=== PATIENT | female | born 1930 | race Caucasian/White ===

== ENCOUNTER 2019-09-25 01:00 | Inpatient (IN) | payer OTHER ==
[~2019-09-25] VITALS: Ht 152.4 cm; Wt 59.0 kg
[~2019-09-25 01:00] MED LIST: ADULT LOW DOSE81 MG PO; ALDACTONE100 MG PO; AMITRIPTYLINE H10 M1 PO; ASPIR 8181 MG PO; BENICAR40 MG PO; BENTYL 10 MG CA10 M1 PO; BIOTIN2500 MCG PO; BYSTOLIC 5 MG5 M1 PO; FLONASE 0.05%50 MCG NASAL; HYDROCODON-ACE1 EAC5 PO; LASIX 20 MG TAB20 MG PO; LASIX 40 MG TAB40 M1 PO; MIRALAX17 GM PO; MIRALAX255 GM PO; MULTIVITAMINS PO; NORCO 10-325 T1 EACH PO; PANTOPRAZOLE SO40 M1 PO; POTASSIUM20 PO; PROTONIX40 M2 PO; TIZANIDINE HCL4 M1 PO; TIZANIDINE HCL4 MG PO; WELLBUTRIN 100100 MG PO
[2019-09-25 01:02] VITALS: BP 168/87
[2019-09-25 04:30] VITALS: BP 151/66
[2019-09-25 05:00] VITALS: BP 163/74
--- NOTE | 2019-09-25 07:25 | NUR ---
PATIENT ARRIVED ON FLOOR FROM ER AT ABOUT 0445. PATIENT ADMISSION HISTORY AND ASSESSMENT WAS COMPLETED CHARTED. PATIENT WAS GIVEN PAIN PILL AND ICE PACK WAS PLACED TO LEFT SHOULDER. WILL CONTINUE TO MONITOR.
[2019-09-25 08:20] VITALS: BP 142/69
[2019-09-25 12:45] LABS: HEMATOCRIT 27.3 % (37.0-47.0); HEMOGLOBIN 9.2 gm/dL (12.0-15.0); MCH 30.6 pg (26.0-34.0); MCHC 33.9 g/dL (28.0-37.0); MCV 90.4 fL (80.0-100.0); MPV 8.5 fl. (7.2-11.1); RBC 3.01 mil/uL (4.20-5.00); RDW-CV 16.1 % (10.5-14.5); WBC 13.4 thou/uL (4.0-11.0)
[2019-09-25 13:02] LABS: CALCIUM 8.5 mg/dL (8.5-10.1); CREATININE 2.2 mg/dL (0.6-1.3); POTASSIUM 4.1 mmol/L (3.5-5.1)
--- NOTE | 2019-09-25 14:57 | NUR ---
SW met with pt to complete initial assessment, introduce self, and SW role. Pt dtr and pt son provided information as well. Pt son Ronnie Schneider phone number is [phone]. Pt alert, oriented, pleasant. Pt lives at home alone. Pt has history of falls and chronic shoulder pain. Pt expressed concern for dc home alone and stated that she wants to be able to dc to [facility]. Pt has a history of SNF at [place] but pt preference at this dc is [facility]. SW to fax referral and SW to continue to follow to assist with safe dc planning.
[2019-09-25 15:15] VITALS: BP 155/65
--- NOTE | 2019-09-25 19:35 | NUR ---
PATIENT AWAKE IN BED. PATIENT IN CHAIR FOR MEALS. PATIENT AMBULATING WITH ASSISTANCE, WALKER, AND GAIT BELT. ALL SAFETY MEASURES MAINTAINED. PATIENT DENIES FURTHER NEEDS AT THIS TIME.
[2019-09-25 21:00] VITALS: BP 145/66
[2019-09-26 04:14] LABS: HEMATOCRIT 28.7 % (37.0-47.0); HEMOGLOBIN 9.4 gm/dL (12.0-15.0); MCH 29.8 pg (26.0-34.0); MCHC 32.7 g/dL (28.0-37.0); MCV 91.1 fL (80.0-100.0); MPV 8.3 fl. (7.2-11.1); RBC 3.16 mil/uL (4.20-5.00); RDW-CV 16.1 % (10.5-14.5); WBC 17.4 thou/uL (4.0-11.0)
[2019-09-26 04:42] LABS: ALBUMIN 2.6 g/dL (3.4-5.0); CALCIUM 8.5 mg/dL (8.5-10.1); CREATININE 1.8 mg/dL (0.6-1.3); MAGNESIUM 2.3 mg/dL (1.8-2.4); POTASSIUM 4.3 mmol/L (3.5-5.1); TOTAL BILIRUBIN 0.4 mg/dL (<0.1-1.0); TOTAL PROTEIN 5.2 g/dL (6.4-8.2)
--- NOTE | 2019-09-26 06:10 | NUR ---
PATIENT SLEPT MOST OF THE NIGHT. IV FLUIDS CONTINUE TO INFUSE AT 100 ML/HR. PATIENT WAS GIVEN PAIN MEDICINE TWICE FOR PAIN. WILL CONTINUE TO MONITOR.
[2019-09-26 08:05] VITALS: BP 150/61
--- NOTE | 2019-09-26 14:14 | NUR ---
RECOMMEND L UE SHOULDER IMMOBILIZER DUE TO PT. IS NOT COMPLIANT WITH NOT MOVING SHOULDER AND USES L UE FOR BACK PERICARE AND CLOTHING MANAGEMENT DESPITE O.T.'S CUES.
--- NOTE | 2019-09-26 15:41 | NUR ---
ESCOBAR followed up with pt and pt family regarding pending dc to [facility] due to acceptance and insurance auth not received yet. ESCOBAR spoke with Malissa in admissions at [facility] who stated that referral is under review and that Margareth planned to visit with pt/family today. SW provided family with resources/referral and support. SW to continue to follow to assist with safe dc planning/placement.
[2019-09-26 16:00] VITALS: BP 154/60
--- NOTE | 2019-09-26 17:36 | NUR ---
PT AWAKE/ALERT VSS. PT WORKED WITH PT THIS AM. PT HAS SLING TO L ARM FOR COMFORT. PT IV TO LFA REMAINS PATENT. IVF DC'D B Y PROVIDER THIS SHIFT. PT UP SBA, GAIT SLOW BUT STEADY. UA COLLECTED AND SENT TO LAB ORDERED. PT REMAINS CONTINENT OF B/B. DISCUSSION OF DC TO FACILITY TOMORROW. PT IN ROOM WITH CALL LIGHT IN REACH. NO C/O PAIN AT THIS TIME. WILL CONTINUE TO MONITOR.
[2019-09-26 20:00] VITALS: BP 147/70
[2019-09-27 02:35] LABS: URINE BILIRUBIN NEGATIVE (Negative); URINE BLOOD NEGATIVE (Negative); URINE CLARITY CLEAR; URINE COLOR YELLOW; URINE GLUCOSE-RANDOM NEGATIVE (Negative); URINE KETONES NEGATIVE (Negative); URINE LEUKOCYTES-REFLEX NEGATIVE (Negative); URINE NITRITE-REFLEX NEGATIVE (Negative); URINE PROTEIN NEGATIVE (Negative); URINE SPECIFIC GRAVITY <= 1.005 (1.005-1.030); URINE UROBILINOGEN 0.2 E.U./dl (0.2-1.0)
[2019-09-27 05:50] LABS: CREATININE 1.3 mg/dL (0.6-1.3); MAGNESIUM 2.4 mg/dL (1.8-2.4); POTASSIUM 4.3 mmol/L (3.5-5.1)
--- NOTE | 2019-09-27 06:43 | NUR ---
ASSUMED CARE OF PT AFTER REPORT AT 1930. PT A&OX4. VSS. PHYSICAL ASSESSMENT COMPLETED AND CHARTED. PT ON RA. PT UP WITH 1 ASSIST TO BSC. PT COMPLAINED OF LEFT SHOULDER PAIN-MEDS GIVEN EPR DEC. PT ABLE TO SLEEP WELL ON BED. CALL LIGHT WITHIN REACH.
--- NOTE | 2019-09-27 06:49 | NUR ---
ASSUMED CARE OF PT AFTER REPORT AT 1930. PT A&OX3. NOT ORIENTED TO TIME. VSS. PHYSICAL ASSESSMENT COMPLETED AND CHARTED. PT ON RA. PT UP WITH 1 ASSIST TO BSC. PT COMPLAINED OF LEFT SHOULDER PAIN-MEDS GIVEN EPR DEC. PT ABLE TO SLEEP WELL ON BED. CALL LIGHT WITHIN REACH.
[2019-09-27 08:00] VITALS: BP 166/64
[2019-09-27] MEDS ORDERED: VOLTAREN GEL 1100 G2 TOP (10:56)
[2019-09-27] MEDS ORDERED: TIZANIDINE HCL2 M1 PO (10:56)
[2019-09-27] MEDS ORDERED: LIDOPATCH1 EACH TOP (10:56)
[2019-09-27] MEDS ORDERED: PAIN RELIEVER500 MG PO (10:56)
[2019-09-27] MEDS ORDERED: TRAMADOL 50 MG50 MG PO (10:56)
[2019-09-27] MEDS ORDERED: OXYCODONE HCL 55 MG PO (10:56)
[2019-09-27] MEDS ORDERED: BENGAY113 GM TOP (10:56)
--- NOTE | 2019-09-27 11:45 | CON ---
[address] [address] CONSULTATION Name: JR MARISCAL Room: [address] ADM IN M.R.#: [id number] Admission: 09/25/19 Attend Phys: Kayla Martinez MD Discharge: Date of : [birth year] Report #: [id number] THIS REPORT FOR: //name// CC: Akhil Martinez DATE OF SERVICE: 09/25/2019 NEPHROLOGY CONSULTATION LOCATION: [facility], in room 316. I am asked to see this 88-year-old female at the request of Dr. Hall for acute kidney injury. CHIEF COMPLAINT: Intractable shoulder pain. HISTORY OF PRESENT ILLNESS: The patient had been at [facility] for unclear reasons and then was discharged to a correction unit for 2 weeks. She completed that stay, returned home and then fell and injured her shoulder. She was diagnosed with a displaced left shoulder and conservative care was recommended. She became more forgetful at home, seemed to be dwindling and was brought by the family to the ED and admitted. PAST MEDICAL HISTORY: Positive for chronic kidney disease with a baseline creatinine of 1.17 and an EGFR of stage 3 values. She also has a history of chronic tremor, followed by Dr. Karey valenzuela. She has degenerative joint disease, secondary hyperparathyroidism, coronary artery disease, acquired renal cystic disease, hematuria for which she follows with Urology, edema of her lower extremities for which she is on diuretics in the form of furosemide, and benign hypertensive kidney disease and hypertension. She has had an acute shoulder subluxation. She has chronic pain. FAMILY HISTORY: Positive for no renal diseases in family members, but abundant coronary artery disease, hypertension and diabetes in her daughter. SOCIAL HISTORY: Very supportive family network. She is . Never a tobacco user. Occasional alcohol use. ALLERGIES: AMOXICILLIN, CODEINE, PENICILLIN AND MORPHINE. MEDICATIONS: She is on chronic medications, which include spironolactone 100 mg daily, potassium chloride 20 mEq daily, olmesartan 40 mg daily, dicyclomine 10 mg every 6 hours p.r.n., furosemide 40 mg daily, bupropion 100 mg daily, fluticasone p.r.n. congestion, biotin 5000 mcg daily, nebivolol 5 mg daily, aspirin 81 mg daily, Flonase 2 sprays nasally q.a.m., aspirin 81 mg at bedtime, [place] [address] CONSULTATION Name: MARISCALJR Room: [address]#: [id number] Admission: 09/25/19 Attend Phys: Kayla Martinez MD Discharge: Date of : [birth year] Report #: [id number] [place] 10/325 mg 4 times a day p.r.n., pantoprazole 40 mg b.i.d., polyethylene glycol 17 grams daily, tizanidine 4 mg p.r.n. muscle spasm, multivitamins one daily. REVIEW OF SYSTEMS: HEENT: No recent changes in vision or hearing. CARDIAC: No chest pain. PULMONARY: Not short of air. GASTROINTESTINAL: No present abdominal pain. Positive constipation. GENITOURINARY: Chronic kidney disease with recent acute renal failure. MUSCULOSKELETAL: Shoulder pain, generalized pain. PSYCHIATRIC: Anxiety and depression. NEUROLOGIC: No TIA, CVA, Parkinson's disease. No seizures. Other 14-point review of systems as above. PHYSICAL EXAMINATION: GENERAL: She is awake. She is confused. She asked me if she is going to . VITAL SIGNS: Show a temperature of 36.7, heart rate 60s, respirations 16, blood pressure 154/60, O2 saturation 96% on room air. HEENT: Atraumatic, normocephalic. NECK: Supple. CHEST: Seems clear bilateral, symmetrical breath sounds. CARDIAC: Regular rhythm. No rubs. ABDOMEN: Soft and nontender. Positive bowel sounds. EXTREMITIES: No edema. She has deformities of her feet bilaterally, calluses. She has good and equal perfusion. PSYCHIATRIC: Cooperative, but anxious. NEUROLOGIC: No new pathologic signs. Motor is intact. Sensory is intact. Cranial nerves seem at baseline. LABORATORY DATA: Shows her creatinine was 2.2 yesterday, 1.8 today. Baseline recently seems to be 1.17 within the past several months. Her potassium is 4.3, CO2 of 29, calcium 8.5, magnesium 2.3. Liver function studies not increased. Albumin 2.6. Folic acid is lower end of normal. TSH 0.14. Hemoglobin is 9.4, hematocrit 28.7, white count 17,400, platelets 263,000. Microbiology has not been obtained. IMAGING STUDIES: Including a head MRI and chest x-ray showed that she has no hemorrhage or mass effect. Normal vascular flow voids are identified on the MRI. Chronic changes are as noted, without acute intracranial abnormalities. Chest x-ray shows slight blunting of the left costophrenic angle suggesting small left pleural effusion, no pneumothorax, left shoulder dislocation that may be chronic. Lungs are otherwise clear. [address] [address] CONSULTATION Name: JR MARISCAL Room: [address] IN [place]#: [id number] Admission: 09/25/19 Attend Phys: Kayla Martinez MD Discharge: Date of : [birth year] Report #: [id number] Her shoulder x-ray showed anterior subcoracoid dislocation of the humerus and a slight irregularity of the shoulder with fracture difficult to exclude, cardiomegaly with aortic prominence and possible tortuosity. IMPRESSION: 1. Acute kidney injury, improving. I do not know her output as it is not charted. She has had a decrease in her creatinine from 2.2 to 1.8. Baseline again recently was 1.7 according to records that I have reviewed from our office from 03/2019. 2. Chronic kidney disease, stage 3. 3. Acute mental status changes, may easily be related to recent medications including pain medications, analgesics, narcotics, tizanidine and others. 4. Anemia of chronic kidney disease. 5. Anterior subcoracoid dislocation of the humerus. 6. Leukocytosis. 7. Acute and chronic pain. 8. Hypertension. 9. Gastroesophageal reflux disease. 10. Diverticulosis. 11. Coronary artery disease. PLAN: 1. We will need to be certain that she is emptying her bladder. We would check postvoid residuals. 2. Follow labs. 3. Avoid sensorium altering drugs as possible. 4. Much workup has been done in other facilities. We will not repeat that at present, especially with her creatinine improving. We will follow with you. <ELECTRONICALLY SIGNED> By: Ana Rice MD 09/27/19 1145 [id number] Rice MD /norma
--- NOTE | 2019-09-27 13:36 | CON ---
[address] [address] CONSULTATION Name: MARISCALJR J Room: [address] IN M.R.#: [id number] Admission: 09/25/19 Attend Phys: Kayla Martinez MD Discharge: Date of : [birth year] Report #: [id number] THIS REPORT FOR: //name// CC: Akhil Martinez HISTORY OF PRESENT ILLNESS: This is an 88-year-old female patient who was seen by me for the possibility of dementia. This patient has a decline in her mental status recently. I do not have any family member to confirm that, but I reviewed the patient's records and it would appear this patient has intractable left shoulder pain, which beneath the shoulder is displaced. Her creatinine has significantly elevated. It is worse than the baseline, although it is becoming better. She has received some pain medication, which I suspect will have delayed clearance because of the renal dysfunction. She never had this kind of episode before and in fact she feels she is better. REVIEW OF SYSTEMS: Positive for intractable shoulder pain because of shoulder dislocation. She has a history of colitis. She also has pain in both feet and that is being addressed by Podiatry. She takes multiple medications. She also has a history of high blood pressure, arthritis, baseline elevation of creatinine, esophagus and stomach problems, reflux, diverticulosis, necrosis of ankles and knee replacement, cataract surgery, palpitations, back pain, cholecystectomies, cyst on the right knee and a question of seizure, which I am not certain about it. She also had a history of hyperglycemia. This was a relevant 14-point review of systems. She does not complain of any new eye, ENT, cardiac, psychiatric, throat, allergic symptom associated with present symptomatology. PAST MEDICAL HISTORY: Positive for pain even in the past. FAMILY HISTORY: Negative for any early age stroke. SOCIAL HISTORY: She denies any abuse of alcohol. PHYSICAL EXAMINATION: GENERAL: Examination indicate that she is alert. She is responsive. She can follow simple command. In fact, she is oriented and her speech, concentration and fund of knowledge is at her baseline. NEUROLOGIC: Cranial nerve examination 2-12 does not appear to be showing any definite abnormality. Neuromuscular examination is limited because she has a problem with the left shoulder, but looks like allowing for that it is symmetrical. Her position sense appeared to be intact. Reflexes and tone looks symmetrical. There is no cerebellar sign. I could not look at the patient's fundus. There is no meningeal sign. The patient is reasonably well-built individual. She does not have any problem with hearing. She does indicate that she sees double. That is nothing new. It is going on for at least 1 year. She does not know when she does that, but on examination, [place] [address] CONSULTATION Name: MARISCALJR Room: [address] IN [facility]#: [id number] Admission: 09/25/19 Attend Phys: Kayla Martinez MD Discharge: Date of : [birth year] Report #: [id number] be any restriction of her extraocular movements. CARDIAC: Examination does not appear to be showing any abnormality. LUNGS: No respiratory difficulty or rhonchi. VITAL SIGNS: Pulses are palpable. Her blood pressure is 145/66, respiration is 17, pulse is 68, temperature is 98.1. LABORATORY DATA: Her white count is high for some reason. IMPRESSION: I suspect the patient's symptom is because of encephalopathy caused by renal dysfunction as well as a delayed clearing of the medications, which the renal dysfunction will cause. I am not certain about her history of seizures. I did order an EEG to check for it. I will give her thiamine and because of renal dysfunction and we just need to see if she improves or not. She will need some workup for her diplopia as an outpatient and she probably will be checked for myasthenia gravis, but for that she should make an appointment as an outpatient. Similarly further workup for dementia needs to be done, that also needs to be done as an outpatient. I discussed that with the patient and if the patient wants to proceed with that, she can make an appointment with us as an outpatient. Thank you very much for this referral. <ELECTRONICALLY SIGNED> By: Don Adams MD 09/27/19 1336 [id number] Adams MD /nt
--- NOTE | 2019-09-27 15:24 | NUR ---
ESCOBAR followed up with Malissa in admissions at [facility] to check on status of referral for SNF. Malissa said that [facility] has not provided auth yet so final acceptance pending insurance auth. Malissa discussed SNF and possible [facility] options in the future with family as well but waiting to hear back from insurance.
[2019-09-27 16:00] VITALS: BP 174/87
[2019-09-27 23:57] VITALS: BP 147/76
--- NOTE | 2019-09-28 04:56 | NUR ---
PATIENT AWAKE MOST OF THE NIGHT. PT REQUESTED PAIN MEDICATION X2. ULTRAM 50MG PO AND OXY 5MG PO GIVEN. PT RETURNED TO SLEEP AFTERWARDS. PT UP IN CHAIR SEVERAL TIMES TO SIT. PT WITH SALINE LOCK; PATENT. PT UP TO BATHROOM WITH STANDBY AND USE OF WALKER. FREQUENTLY USED ITEMS AND CALL LIGHT WITHIN REACH. SIDERAILS UPX3 AND BED ALARM ON. WILL CONTINUE TO MONITOR.
[2019-09-28 08:30] VITALS: BP 165/75
[2019-09-28 17:30] VITALS: BP 167/65
--- NOTE | 2019-09-28 18:14 | NUR ---
PATIENT AWAKE IN BED. ALL SAFETY MEASURES MAINTAINED. PATIENT AMBULATED WITH ASSISTANCE, GAIT BELT, AND CANE TO BEDSIDE COMMODE AND CHAIR THROUGHOUT SHIFT. PATIENT DENIES FURTHER NEEDS AT THIS TIME.
[2019-09-29] VITALS: BP 168/64
--- NOTE | 2019-09-29 01:46 | NUR ---
PATIENT TO BATHROOM WITH ASSIST OF ONE PLUS CANE. PT VOIDED YELLOW URINE. PT UNABLE TO GET OFF TOILET. NURSE RODERICK CALLED FOR ASSISTANCE. GAIT BELT PLACED ON PATIENT AND PT WAS INSTRUCTED TO PUT FEET UNDER HERSELF AND ON COUNT OF THREE THE THREE OF US WE WOULD GET HER UP OFF THE TOILET. PT UPSET AND SAID SHE WOULD NOT GET UP. AT NO TIME WAS PT'S LT ARM USED TO GET HER UP. TECH AND I ASSISTED HER TO STANDING POSITION WITH USE OF G.BELT AND ASSISTED HER BACK TO BED. PT ANGRY SHE WAS MADE TO USE BATHROOM INSTEAD OF COMMODE. PT POSITIONED IN BED, PT AGREED TO TRY PILLOW UNDER LT ARM THEN REFUSED. ICE PACK PROVIDED. TYLENOL EX X2 GIVEN AT 0130 SCHEDULED. PT ASKED ME TO LEAVE THE ROOM AT THIS TIME. CALL LIGHT WITHIN REACH. WILL CONTINUE TO MONITOR.
[2019-09-29 08:00] VITALS: BP 154/71
[2019-09-29] MEDS ORDERED: OXYCODONE HCL 55 MG PO (08:39)
[2019-09-29 16:34] VITALS: BP 194/86
--- NOTE | 2019-09-29 18:24 | NUR ---
ASSUMED CARE AT 0730. ALERT ORIENTED PLEASANT COOPERATIVE. HX OF L SHOULDER SUBLUXATION WEARS SLING CONTINOUSLY. TRANSFERS WITH 1 ASSIST G BELT CANE TO BSC AND RECLINER FROM BED. VOIDS AND HAD A MOD BM. MEDICATED X 3 FOR C/O SHOULDER PAIN WITH SLIGHT RELIEF STATED. TAKES MEDS WHOLE WITHOUT DIFFICULTY. APPETITE FAIR USES CALL LIGHT VERY APPROPRIATELY FOR ASSIST. RESTED IN BED THIS AFTERNOON.
--- NOTE | 2019-09-29 18:55 | NUR ---
HOURLY RROUNDING COMPLETED.
[2019-09-29 22:11] VITALS: BP 164/61
[2019-09-30 04:23] LABS: HEMATOCRIT 27.5 % (37.0-47.0); HEMOGLOBIN 9.1 gm/dL (12.0-15.0); MCH 30.3 pg (26.0-34.0); MCV 91.7 fL (80.0-100.0); MPV 7.8 fl. (7.2-11.1); RDW-CV 16.4 % (10.5-14.5); WBC 9.7 thou/uL (4.0-11.0)
[2019-09-30 04:38] LABS: CALCIUM 8.7 mg/dL (8.5-10.1); CREATININE 0.9 mg/dL (0.6-1.3); MAGNESIUM 2.2 mg/dL (1.8-2.4); POTASSIUM 3.1 mmol/L (3.5-5.1)
--- NOTE | 2019-09-30 07:03 | NUR ---
PATIENT AWAKE MOST OF THE NIGHT DURING THIS SHIFT. PT C/O NEEDING PAIN MEDICATION IMMEDIATELY AFTER RECEIVING IT. EXPLAINED TO PT THAT SHE WOULD NEED TIME TO LET MEDS WORK. PT CONTINUED TO CALL BECOMING UPSET SAYING SHE WANTED TO LEAVE AMA. ICE PACK GIVEN AND PT REPOSITIONED NUMEROUS TIMES FOR COMFORT. PT UP TO BSC TO VOID WITH G.BELT AND USE OF CANE PLUS ASSIST. PT ASSISTED WITH TURNS. FREQUENTLY USED ITEMS AND CALL LIGHT WITHIN REACH. SIDERAILS UPX3 AND BED ALARM ON. WILL CONTINUE TO MONITOR.
[2019-09-30 08:00] VITALS: BP 150/68
--- NOTE | 2019-09-30 12:18 | NUR ---
nidhi ramos from [facility], via text, Fani stated she has received insur auth and pt is okay to go to facility today when d/c.
[2019-09-30 13:31] VITALS: BP 150/68
[2019-09-30 13:33] VITALS: BP 150/68
--- NOTE | 2019-09-30 15:17 | NUR ---
pt d/c to [facility], set up transportation. pt's dtr notified, and present at time of d/c. nurse is in agreement, nurse has been given number to call report. [phone]. cm faxed orders and med list, along w/facesheet to [facility].
--- NOTE | 2019-09-30 15:30 | NUR ---
PT A&OX3 VSS. PT TRANSFERS W/ ASSIST OF 1 AND GAIT BELT. SLING TO L ARM FOR SUPPORT. LFA IV DC'D PRIOR TO LEAVING UNIT. TYLENOL, ASPIRIN, TRAMADOL, TOPICALS AND OXYCODONE ADMINISTERED ORDERED TO ADDRESS PAIN MANAGEMENT. X RAY OF L SHOULDER REPEATED THIS AM. ORTHO CONSULTED AND NO CHANGES NOTED. PT TO DC TO SNF FOR CONTINUED TX AND PAIN MANAGEMENT. DGTR WITH PT AT TIME OF DC. REPORT TO AWILDA AT [facility]. CHART, PAPERWORK AND RX SENT WITH PT AND [employer]. NARCOTIC PAIN MED ADMINISTERED IMMEDIATELY PRIOR TO LEAVING THE UNIT. PT TRANSPORTED FROM UNIT IN WC WITH [employer] AND DGTR ACCOMPANYING.
== END 2019-09-30 15:27 | DRG 562 ==
LOC: M.ERS 01:00 → M.TBA-ER 03:33 → M.3W 03:33 → M.ERS 04:30 → M.3W 04:44
PROVIDERS: Internal Medicine; ADMIT Family Medicine
DX: S43.012A Anterior subluxation of left humerus, initial encounter (principal); G92 Toxic encephalopathy; N17.0 Acute kidney failure with tubular necrosis; E44.0 Moderate protein-calorie malnutrition; N25.81 Secondary hyperparathyroidism of renal origin; S43.015A Anterior dislocation of left humerus, initial encounter; Z96.652 Presence of left artificial knee joint; K57.90 Diverticulosis of intestine, part unspecified, without perforation or abscess without bleeding; I25.10 Atherosclerotic heart disease of native coronary artery without angina pectoris; L84 Corns and callosities; K21.9 Gastro-esophageal reflux disease without esophagitis; I12.9 Hypertensive chronic kidney disease with stage 1 through stage 4 chronic kidney disease, or unspecified chronic kidney disease; N18.3 Chronic kidney disease, stage 3 (moderate); D63.1 Anemia in chronic kidney disease; D72.829 Elevated white blood cell count, unspecified; G89.29 Other chronic pain; R41.3 Other amnesia; R54 Age-related physical debility; M19.012 Primary osteoarthritis, left shoulder; M19.011 Primary osteoarthritis, right shoulder; R25.1 Tremor, unspecified; F32.9 Major depressive disorder, single episode, unspecified; M19.079 Primary osteoarthritis, unspecified ankle and foot; Z88.1 Allergy status to other antibiotic agents; Z84.1 Family history of disorders of kidney and ureter; Z88.5 Allergy status to narcotic agent; Z88.0 Allergy status to penicillin; W19.XXXA Unspecified fall, initial encounter; Y93.89 Activity, other specified; Y92.89 Other specified places as the place of occurrence of the external cause; Y99.8 Other external cause status; Z68.25 Body mass index [BMI] 25.0-25.9, adult; Z90.49 Acquired absence of other specified parts of digestive tract; Z83.3 Family history of diabetes mellitus; Z98.49 Cataract extraction status, unspecified eye; Z98.42 Cataract extraction status, left eye; Z98.41 Cataract extraction status, right eye